=== PATIENT | female | born 1995 | race Caucasian/White ===

== ENCOUNTER 2020-05-08 19:50 | Emergency (ER) | payer OTHER ==
[~2020-05-08] VITALS: Ht 175.3 cm; Wt 58.2 kg
[2020-05-08] MEDS ORDERED: MORPHINE SULFATE 4 MG/ML, 1ML IVPush PRN (20:30)
[2020-05-08] MEDS ORDERED: ONDANSETRON 2MG/ML, 2ML IVPush ONE ×2 (20:30→23:30)
[2020-05-08] MEDS ORDERED: KETOROLAC 30 MG/1 ML IVPush ONE (20:30)
[2020-05-08] MEDS ORDERED: PLEASE ENTER ALLERGIES MC SCH (20:30)
[2020-05-08] MEDS ORDERED: SODIUM CHLORIDE 0.9% 1,000 ML IV ONE (20:30)
[2020-05-08] MEDS ORDERED: SODIUM CHLORIDE FLUSH 10ML SYR IVF ONE (20:30)
--- NOTE | 2020-05-08 20:37 | NUR ---
PT BIB DAD VIA POV. PT STATED THAT SHE HAS N/V; DENIES ANY HISTORY OF GI COMPLICATIONS. STARTED YESTERDAY; WORSENED SINCE THEN. GAVE PEPTO AT HOME WITHOUT IMPROVEMENT. PT HAS MEDICAL HX OF OVARIAN CYST. PT STATES "IT FEELS LIKE I AM CONSTIPATED". PT RESTING IN [facility], MONITORING IN PLACE, NADN AT THIS TIME, PER PT NO NEEDS, WCTM.
[2020-05-08 20:52] LABS: BASOPHILS % (AUTO) 1 % (0-1); EOSINOPHILS % (AUTO) 2 % (1-7); LYMPHOCYTES % (AUTO) 23 % (22-44); MD NO; MEAN CORPUSCULAR HEMOGLOBIN 29.9 pg (27.0-34.8); MEAN CORPUSCULAR HGB CONC 34.1 g/dL (32.4-35.8); MEAN PLATELET VOLUME 7.8 fL (7.4-10.4); MONOCYTES % (AUTO) 10 % (2-9); NEUTROPHILS % (AUTO) 64 % (42-75); PLATELET COUNT 291 x10^3/uL (130-400)
[2020-05-08 20:53] LABS: ALANINE AMINOTRANSFERASE 18 U/L (12-78); ALBUMIN 4.4 g/dL (3.4-5.0); ANION GAP 6 mmol/L (5-15); CALCIUM 9.1 mg/dL (8.5-10.1); CHLORIDE 106 mmol/L (98-107); CREATININE 0.88 mg/dL (0.55-1.02)
[2020-05-08 20:58] LABS: ALKALINE PHOSPHATASE 53 U/L (45-117); BILIRUBIN,TOTAL 0.6 mg/dL (0.2-1.0); TOTAL PROTEIN 7.8 g/dL (6.4-8.2)
--- NOTE | 2020-05-08 21:52 | NUR ---
TOOK OVER CARE OF PT, AND PT A&OX4, LYING COMFORTABLY IN BED. PT ABLE TO GO TO THE BATHROOM AND PROVIDE UA SAMPLE, AND SAMPLE SENT TO LAB. NO FURTHER ISSUES, PT RESTING COMFORTABLY, SIDERAILS UP X2, AND CALL LIGHT WITHIN REACH.
[2020-05-08] MEDS ORDERED: METOCLOPRAMIDE 5 MG/ML, 2ML ONE (22:07)
[2020-05-08 22:11] LABS: MICROSCOPIC NOT IND
[2020-05-08] MEDS ORDERED: METOCLOPRAMIDE 5 MG/ML, 2ML IVPush ONE (22:30)
[2020-05-08] MEDS ORDERED: ONDANSETRON 2MG/ML, 2ML ONE (23:54)
[2020-05-08 23:56] VITALS: BP 117/66
--- NOTE | 2020-05-09 00:01 | NUR ---
PT A&OX4, AND F/U AND D/C INSTRUCTIONS AND PT V/U. NO DISTRESS, AND PIV REMOVED AND CATH INTACT.
== END 2020-05-09 00:15 | disposition home or self-care (01) ==
LOC: ED 05-09
DX: R10.13 Epigastric pain (principal); R11.0 Nausea; R42 Dizziness and giddiness
CPT/HCPCS: 36415; 76700; 80053; 81003; 83690; 84703; 85025; 96374; 96375; 99284; J2405; J2765